=== PATIENT | female | born 1960 | race Caucasian/White ===

== ENCOUNTER 2018-07-07 06:58 | Day surgery (SDC) | payer BC ==
[~2018-07-07] VITALS: Ht 170.2 cm; Wt 121.1 kg
[2018-07-07] VITALS (10 sets, daily range): BP systolic 105–147; BP diastolic 52–84; PULSE 58–71; TEMP 97.5
[~2018-07-07 06:58] MED LIST: ASPIRIN E.C. 8181 MG PO; DYAZIDE 25 MG-31 CAP PO; GLUCOPHAGE1000 MG PO; HCTZ 25MG25 MG PO
[2018-07-07 07:51] LABS: HEMATOCRIT 37.3 % (37.0-47.0); HEMOGLOBIN 12.1 g/dl (12.5-16.0); MEAN CELL VOLUME 87 fl (80.0-100.0); MEAN CORPUSCULAR HEMOGLOBIN 28 pg (27.0-31.0); MEAN CORPUSCULAR HGB CONC 32 g/dl (33.0-37.0); MEAN PLATELET VOLUME 10.2 fl (7.4-10.4); PLATELET COUNT 316 K/mm3 (130-400)
[2018-07-07 07:57] LABS: INR 1.2 (0.8-3.0); PROTHROMBIN TIME 13.9 SECONDS (9.7-12.8)
[2018-07-07] MEDS ORDERED: NITROSTAT0.4 MG/TAB SL (07:59)
[2018-07-07] MEDS ORDERED: EPA FISH OIL1 SGL PO (07:59)
[2018-07-07 08:00] LABS: CALCIUM 9.3 mg/dL (8.4-10.2); CREATININE, serum 0.71 mg/dL (0.52-1.25); POTASSIUM 3.9 mmol/L (3.4-5.0)
[2018-07-07] MEDS ORDERED: MASON NATURAL2000 IU PO (08:14)
[2018-07-07] MEDS ORDERED: GLUCOPHAGE1000 MG PO (10:08)
== END 2018-07-07 13:54 | disposition home or self-care (01) ==
LOC: COL.CAR 06:58
PROVIDERS: Internal Medicine Cardiovascular Disease
DX: I20.0 Unstable angina (principal); R94.39 Abnormal result of other cardiovascular function study; G47.33 Obstructive sleep apnea (adult) (pediatric); I83.90 Asymptomatic varicose veins of unspecified lower extremity; R53.1 Weakness; R53.83 Other fatigue; Z79.82 Long term (current) use of aspirin; Z86.718 Personal history of other venous thrombosis and embolism; Z82.49 Family history of ischemic heart disease and other diseases of the circulatory system
CPT/HCPCS: J1644; J2250; J3010